=== PATIENT | female | born 1995 | race Caucasian/White ===

== ENCOUNTER 2018-07-27 10:30 | Observation (INO) | payer MEDICAID ==
[~2018-07-27] VITALS: Ht 165.1 cm; Wt 68.0 kg
--- NOTE | 2018-07-27 10:27 | NUR ---
JULIO WANG presented to unit via cart by EMS, accompanied by paramedics, with c/o LEFT SIDE ABD PAIN 32 WKS PREG. JULIO WANG weighed, gowned, voided, and to bed. JULIO WANG oriented to bed controls, call light, TV, heat, and A/C controls.
[2018-07-27 10:40] VITALS: BP 121/85
--- NOTE | 2018-07-27 10:42 | NUR ---
dr shepherd notified of patient c/o and status new orders received.
[2018-07-27] MEDS ORDERED: D5 LR IV SOLUTION 1,000 ML IV ONE ×2 (10:59→15:15)
[2018-07-27] MEDS ORDERED: fentaNYL INJECTION 100 MCG/2 ML AMP ONE ×2 (10:59→14:04)
[2018-07-27 11:13] LABS: BASOPHILS % (AUTO) 0 % (0-10); EOSINOPHILS # (AUTO) 0.1 10^3/uL (0.0-0.3); EOSINOPHILS % (AUTO) 0 % (0-10); HEMATOCRIT 37 % (35-52); HEMOGLOBIN 12.4 G/DL (11.5-16.0); LYMPHOCYTES # (AUTO) 1.7 X 10^3 (1.0-4.0); LYMPHOCYTES % (AUTO) 11 % (12-44); MEAN CORPUSCULAR HEMOGLOBIN 31 PG (25-34); MEAN CORPUSCULAR HGB CONC 34 G/DL (32-36); MEAN CORPUSCULAR VOLUME 92 FL (80-99); MEAN PLATELET VOLUME 10.4 FL (7.4-10.4); MONOCYTES # (AUTO) 1.2 X 10^3 (0.0-1.0); MONOCYTES % (AUTO) 7 % (0-12); NEUTROPHILS # (AUTO) 12.6 X 10^3 (1.8-7.8); NEUTROPHILS % (AUTO) 81 % (42-75); PLATELET COUNT 253 10^3/uL (130-400); RED CELL DISTRIBUTION WIDTH 12.9 % (10.0-14.5); WHITE BLOOD COUNT 15.6 10^3/uL (4.3-11.0)
[2018-07-27 11:14] LABS: BILIRUBIN,URINE NEGATIVE (NEGATIVE); CLARITY,URINE SLIGHTLY CLOUDY; COLOR,URINE YELLOW; GLUCOSE, URINE (UA) NEGATIVE (NEGATIVE); KETONES,URINE NEGATIVE (NEGATIVE); LEUKOCYTE ESTERASE ,URINE 2+ (NEGATIVE); NITRITE,URINE NEGATIVE (NEGATIVE); PH,URINE 8 (5-9); PROTEIN,URINE 2+ (NEGATIVE); UROBILINOGEN,URINE NORMAL (NORMAL)
[2018-07-27 11:30] LABS: AMORPHOUS SEDIMENT,UR FEW AMOR PHOSPHATE /LPF; BACTERIA,URINE FEW /HPF; RBC,URINE >100 /HPF
[2018-07-27 11:39] LABS: ALANINE AMINOTRANSFERASE 10 U/L (0-55); ALBUMIN 3.8 GM/DL (3.2-4.5); ALKALINE PHOSPHATASE 138 U/L (40-136); BILIRUBIN,TOTAL 0.3 MG/DL (0.1-1.0); BUN/CREATININE RATIO 14; CALCIUM 9.5 MG/DL (8.5-10.1); CARBON DIOXIDE 22 MMOL/L (21-32); CHLORIDE 105 MMOL/L (98-107); CREATININE SERUM 0.74 MG/DL (0.60-1.30); GFR ESTIMATED > 60; GLUCOSE 81 MG/DL (70-105); POTASSIUM 3.9 MMOL/L (3.6-5.0); SODIUM 139 MMOL/L (135-145); TOTAL PROTEIN 7.1 GM/DL (6.4-8.2)
[2018-07-27 11:45] LABS: BAND NEUTROPHILS 0 %; BASOPHILS % (MANUAL) 0 %; EOSINOPHILS % (MANUAL) 0 %; LYMPHOCYTES % (MANUAL) 13 %; MONOCYTES % (MANUAL) 6 %; NEUTROPHILS % (MANUAL) 81 %; RBC MORPH NORMAL
--- NOTE | 2018-07-27 12:15 | Diagnostic Imaging Report ---
PROCEDURE: US Renal Bilateral. TECHNIQUE: Multiple real-time grayscale images were obtained over the kidneys in various projections bilaterally. INDICATION: 32 weeks with left flank pain. COMPARISON: None available. FINDINGS: Left kidney is mildly enlarged measuring 14 cm in length. There is mild dilatation of the renal sinus fat on the left. No cortical thinning is present. No shadowing echogenic calculi are noted. The right kidney is normal in size measuring approximately 10 cm in length. No right-sided hydronephrosis or shadowing echogenic calculi. IMPRESSION: 1. Mild left-sided hydronephrosis without shadowing calculi. This could be physiologic with the gravid uterus. 2. No right-sided hydronephrosis. Dictated by: Dictated on workstation # [id number]
--- NOTE | 2018-07-27 12:20 | NUR ---
dr shepherd notified of lab and radiology results new orders received.
--- NOTE | 2018-07-27 13:35 | NUR ---
reviewed plan for continued observation and straining of urine for stones. verbalized understanding.
[2018-07-27] MEDS: ceFAZolin INJECTION 1,000 MG in WATER (STERILE) FOR INJECTION 10 ML IV SCH ×2 (14:00→19:58)
[2018-07-27 14:14] VITALS: BP 113/69
[2018-07-27] MEDS ORDERED: fentaNYL INJECTION 100 MCG/2 ML AMP IVP PRN (14:15)
--- NOTE | 2018-07-27 14:16 | NUR ---
efm applied. orders received for continuous FM r/t IV fentanyl use. reviewed poc with patient. verbalized understanding. see eMAR.
[2018-07-27] MEDS: fentaNYL INJECTION 100 MCG/2 ML AMP IVP PRN ×4 (16:30→22:46)
--- NOTE | 2018-07-27 17:07 | History & Physical-OB/GYN ---
History of Present Illness History of Present Illness Reason for visit/HPI Left-sided flank pain during Date of Admission 07/27/2018 Date Seen by a Provider: July 27, 2018 Time Seen by a Provider: 16:50 I consulted on this patient on 07/27/18 17:01 Attending Physician Doc Pollack DO Admitting Physician Doc Pollack DO Consult Allergies and Home Medications Allergies Coded Allergies: No Known Drug Allergies (Unverified , 07/27/18) Patient Home Medication List Home Medication List Reviewed: Yes ( Vitamins) Past Mtyscxy-Rxaalk-Jmuxmg Hx Patient Social History Marrital Status: single Number of Children: 1 Number of living children: 1 Employed/Student: unemployed Alcohol Use: Denies Use Recreational Drug Use: No Smoking Status: Never a Smoker Type Used: Cigarettes 2nd Hand Smoke Exposure: Yes Physical Abuse Screen: No Sexual Abuse: No Recent Foreign Travel: No Contact w/other who traveled: No Recent Hopitalizations: No Recent Infectious Disease Expo: No Seasonal Allergies Seasonal Allergies: No Surgeries Yes (STENT FOR KIDNEY STONES) Adenoidectomy, Tonsillectomy Respiratory No Currently Using CPAP: No Currently Using BIPAP: No Cardiovascular No Neurological No Reproductive System : Yes Expected Date of Delivery: Sep 08, 2018 Hx : 2 Hx Para: 1 Hx Total # of Abortions (Spona: 0 Hx Reproductive Disorders: No Sexually Transmitted Disease: No HIV/AIDS: No Female Reproductive Disorders: Denies Genitourinary No Gastrointestinal No Musculoskeletal No Endocrine History of Endocrine Disorders: No HEENT History of HEENT Disorders: No Cancer No Psychosocial History of Psychiatric Problem: No Blood Transfusions History of Blood Disorders: No Review of Systems Constitutional: see HPI Physical Exam Physical Exam Vital Signs Vital Signs Date Time Temp Pulse Resp B/P (MAP) Pulse Ox O2 Delivery O2 Flow Rate FiO2 07/27/18 10:40 99.2 69 20 121/85 (97) 99 Room Air Capillary Refill : Labs Laboratory Tests 07/27/18 11:00: Urine Color YELLOW, Urine Clarity SLIGHTLY CLOUDY, Urine pH 8, Urine Specific [place] 1.015L, Urine Protein 2+H, Urine Glucose (UA) NEGATIVE, Urine Ketones NEGATIVE, Urine Nitrite NEGATIVE, Urine Bilirubin NEGATIVE, Urine Urobilinogen NORMAL, Urine Leukocyte Esterase 2+H, Urine RBC (Auto) 5+H, Urine RBC >100H, Urine WBC 2-5, Urine Squamous Epithelial Cells 5-10, Urine Crystals PRESENTH, Urine Amorphous Sediment FEW KHADIJAH PHOSPHATEH, Urine Bacteria FEWH, Urine Casts NONE, Urine Mucus NEGATIVE, Urine Culture Indicated YES 07/27/18 11:07: White Blood Count 15.6H, Red Blood Count 3.97L, Hemoglobin 12.4, Hematocrit 37, Mean Corpuscular Volume 92, Mean Corpuscular Hemoglobin 31, Mean Corpuscular Hemoglobin Concent 34, Red Cell Distribution Width 12.9, Platelet Count 253, Mean Platelet Volume 10.4, Neutrophils (%) (Auto) 81H, Lymphocytes (%) (Auto) 11L, Monocytes (%) (Auto) 7, Eosinophils (%) (Auto) 0, Basophils (%) (Auto) 0, Neutrophils # (Auto) 12.6H, Lymphocytes # (Auto) 1.7, Monocytes # (Auto) 1.2H, Eosinophils # (Auto) 0.1, Basophils # (Auto) 0.0, Neutrophils % (Manual) 81, Lymphocytes % (Manual) 13, Monocytes % (Manual) 6, Eosinophils % (Manual) 0, Basophils % (Manual) 0, Band Neutrophils 0, Blood Morphology Comment NORMAL, Sodium Level 139, Potassium Level 3.9, Chloride Level 105, Carbon Dioxide Level 22, Anion Gap 12, Blood Urea Nitrogen 10, Creatinine 0.74, Estimat Glomerular Filtration Rate > 60, BUN/Creatinine Ratio 14, Glucose Level 81, Calcium Level 9.5, Corrected Calcium 9.7, Total Bilirubin 0.3, Aspartate Amino Transf (AST/ SGOT) 18, Alanine Aminotransferase (ALT/SGPT) 10, Alkaline Phosphatase 138H, Total Protein 7.1, Albumin 3.8 General Appearance: Mild Distress Respiratory: Lungs Clear, Normal Breath Sounds Cardiovascular: Regular Rate, Rhythm, No Murmur Abdominal: non tender, other (Significant left CVA tenderness) Labia: WNL Vagina: WNL Cervix: WNL Cervix OS: closed Uterus: Other (Gravid) Extremity: Normal Inspection, Normal Range of Motion, No Pedal Edema Assessment/Plan Assessment and Plan Assessment: Intrauterine at 33 weeks 2. Left CVA Tenderness 3. Nausea with Vomiting 4. Hematuria Plan: IV fluids, pain medications, antiemetic, and antibiotic. Strain urine. External Monitoring with observation. Admission Diagnosis Admission Status: Observation DOC POLLACK DO July 27, 2018 17:07
[2018-07-27] MEDS ORDERED: ONDANSETRON 4 MG/2 ML (SDV) Z0FRAN IVP PRN (18:15)
[2018-07-27 18:35] VITALS: BP 91/52
--- NOTE | 2018-07-27 19:00 | NUR ---
REFER TO LABOR FLOW SHEET.
[2018-07-27] MEDS: D5 LR IV SOLUTION 1,000 ML IV SCH ×3 (19:22→23:27)
--- NOTE | 2018-07-27 19:23 | NUR ---
PT RESTING. NEW BAG OF IV FLUIDS HUNG AND INFUSING @ 250 ML/HR/PUMP. MONITOR PAPER CHANGED.
[2018-07-27 22:45] VITALS: BP 111/55
[2018-07-28 01:20] VITALS: BP 127/64
[2018-07-28] MEDS: fentaNYL INJECTION 100 MCG/2 ML AMP IVP PRN ×4 (01:21→08:23)
[2018-07-28] MEDS: ceFAZolin INJECTION 1,000 MG in WATER (STERILE) FOR INJECTION 10 ML IV SCH ×2 (02:17→08:24)
[2018-07-28] MEDS ORDERED: D5 LR IV SOLUTION 1,000 ML IV SCH (03:00)
[2018-07-28] MEDS: D5 LR IV SOLUTION 1,000 ML IV SCH (03:24)
--- OUTSIDE RECORDS SUMMARY | 2018-07-28 04:38 | XMS REPORT | Continuity of Care Document ---
Author Organization Unknown Address Unknown Allergies There is no data. Medications There is no data. Problems There is no data. Procedures There is no data. Results Test Result Range HCG, QUANTITATIVE - 01/06/17 17:42 [place] [address] mIU/mL NRG TEST, SERUM (QUAL) - 01/06/17 17:42 HCG, TOTAL, QL POSITIVE See Note: TEST AUTHORIZATION - 01/06/17 17:42 TEST NAME: HCG, TOTAL, QN NRG TEST CODE: [id number] NRG CLIENT CONTACT: EZEQUIEL RODRIGUEZ NRG REPORT ALWAYS MESSAGE SIGNATURE NRG COMMENT NRG GLUCOSE MILDRED 1 HOUR - 06/17/18 15:06 GLUCOSE, POSTPRANDIAL/ 1 HOUR 74 mg/dL See Note: CBC - 06/17/18 15:06 WHITE BLOOD CELL COUNT 10.4 Thousand/uL 3.8-10.8 RED BLOOD CELL COUNT 3.80 Million/uL 3.80-5.10 HEMOGLOBIN 12.0 g/dL 11.7-15.5 HEMATOCRIT 35.0 % 35.0-45.0 MCV 92.1 fL 80.0-100.0 MCH 31.6 pg 27.0-33.0 MCHC 34.3 g/dL 32.0-36.0 RDW 12.2 % 11.0-15.0 PLATELET COUNT 285 Thousand/uL 140-400 MPV 11.2 fL 7.5-12.5 ABSOLUTE NEUTROPHILS 7457 cells/uL 8678-3806 ABSOLUTE LYMPHOCYTES 1882 cells/uL 850-3900 ABSOLUTE MONOCYTES 926 cells/uL 200-950 ABSOLUTE EOSINOPHILS 104 cells/uL 15-500 ABSOLUTE BASOPHILS 31 cells/uL 0-200 NEUTROPHILS 71.7 % NRG LYMPHOCYTES 18.1 % NRG MONOCYTES 8.9 % NRG EOSINOPHILS 1.0 % NRG BASOPHILS 0.3 % NRG SYPHILIS (RPR W/ REFLEX CONFIRMATION) - 06/17/18 15:06 RPR (DX) W/REFL TITER AND CONFIRMATORY TESTING NON-REACTIVE NON-REACTIVE Encounters ACCT No. Visit Date/Time Discharge Status Pt. Type Provider Facility Loc./Unit Complaint [id number] 07/15/2018 15:15:00 07/15/2018 23:59:59 [facility] [id number] 06/17/2018 13:30:00 Document Registration [id number] 01/06/2017 16:40:00 Document Registration
--- NOTE | 2018-07-28 05:14 | NUR ---
Rn to room to give pt her pain medication that she requested. Pt sleeping in bed, easy to arouse. pt immediately started moaning with left lower back pain when aroused. Will cont to monitor pain, iv pain medication given per pt request.
[2018-07-28 05:20] VITALS: BP 102/53
--- NOTE | 2018-07-28 06:15 | NUR ---
Dr. Pollack at bedside.
--- NOTE | 2018-07-28 06:27 | Discharge Summary ---
Diagnosis/Chief Complaint Date of Admission July 27, 2018 at 19:00 Date of Discharge July 28, 2018 Discharge Date: July 28, 2018 Discharge Time: 08:00 Admission Diagnosis Admission Diagnosis Intrauterine at 33 weeks 2. Severe Back Pain 3. CVA Tenderness 4. Hematuria Discharge Diagnosis Intrauterine at 33 weeks 2. Severe Back Pain 3. CVA Tenderness 4. Hematuria 5. Nausea with Vomiting Reason Hospital Visit Left-sided flank pain during Discharge Summary Hospital Course Was the Problem List Reviewed?: Yes Hospital Course Ms. Nielsen was admitted secondary to having severe left sided flank pain and needing pain management. Once admitted she was given IV fluids, antibiotics, and pain medications. A renal ultrasound was done, which demonstrated hydronephrosis on the left, but no visible nephrolithiasis. Over the course her pain improved, but didn't totally resolved. However, she felt she could be treated as an outpatient. I will discharge her to home with instructions, prescriptions, and a follow up appointment. Labs Laboratory Tests 07/27/18 11:00: Urine Specific [place] 1.015L, Urine Protein 2+H, Urine Leukocyte Esterase 2+H, Urine RBC (Auto) 5+H, Urine RBC >100H, Urine Crystals PRESENTH, Urine Amorphous Sediment FEW KHADIJAH PHOSPHATEH, Urine Bacteria FEWH 07/27/18 11:07: White Blood Count 15.6H, Red Blood Count 3.97L, Neutrophils (%) (Auto) 81H, Lymphocytes (%) (Auto) 11L, Neutrophils # (Auto) 12.6H, Monocytes # (Auto) 1.2H , Alkaline Phosphatase 138H Procedures None. Discharge Physical Examination Allergies: Coded Allergies: No Known Drug Allergies (Unverified , 07/27/18) Vitals & I&Os Vital Signs Date Time Temp Pulse Resp B/P (MAP) Pulse Ox O2 Delivery O2 Flow Rate FiO2 07/28/18 05:20 98.4 66 18 102/53 (69) Room Air 07/27/18 10:40 99 Discharge Home Medications Reviewed and agree with Discharge Medication list on patient's Discharge Instruction sheet Instructions to Patient/Family Please see electronic discharge instructions given to patient. FORTUNATO DELCID DO July 28, 2018 06:27
[2018-07-28] MEDS ORDERED: OXYC1TAB87 PO (06:30)
[2018-07-28] MEDS ORDERED: CEPH-507 PO (06:31)
[2018-07-28 08:00] VITALS: BP 109/56
--- NOTE | 2018-07-28 08:00 | NUR ---
A.M. ASSESSMENT COMPLETED. STRAINING ALL URINE. VSS.
--- NOTE | 2018-07-28 08:23 | NUR ---
FENTANYL 50 MCG IV FOR C/O LEFT SIDE/BACK PAIN.
--- NOTE | 2018-07-28 10:50 | NUR ---
DISCHARGE INSTRUCTIONS REVIEWED WITH COPY TO PT. RXS GIVEN. STATES UNDERSTANDING OF ALL INSTRUCTIONS AND NEED TO F/U INSTRUCTED.
[2018-07-28 11:00] VITALS: BP 109/56
--- NOTE | 2018-07-28 11:00 | NUR ---
DISMISSED AMB FROM [facility] IN STABLE CONDITION TO [facility] BY MATHEW THORNTON.
== END 2018-07-28 11:00 | disposition home or self-care (01) ==
LOC: LDRP 10:30 → WSo 10:30 → LDRP 15:07 → WS 15:07 → WSo 18:59 → LDRP 19:00 → WSo 19:59 → LDRP 19:59
PROVIDERS: ADMIT Obstetrics & Gynecology; ATTEND Obstetrics & Gynecology
DX: O26.893 Other specified pregnancy related conditions, third trimester (principal); M54.5 Low back pain; N13.30 Unspecified hydronephrosis; R31.9 Hematuria, unspecified; O21.2 Late vomiting of pregnancy; Z3A.33 33 weeks gestation of pregnancy
CPT/HCPCS: 36415; 76770; 80053; 81000; 85007; 85027; 87088; 96361; 96374; 96375; 96376; 99211; G0378

== ENCOUNTER → 2018-07-27 | Emergency (ER) | payer MEDICAID, OTHER | LOC: ER FS 09:14 ==

== ENCOUNTER 2018-08-29 06:57 | Inpatient (IN) | payer MEDICAID ==
[2018-08-29] VITALS (12 sets, daily range): BP systolic 94–133; BP diastolic 48–83
[~2018-08-29] VITALS: Ht 165.1 cm; Wt 73.5 kg
[~2018-08-29 06:57] MED LIST: CEPH-507 PO; OXYC1TAB87 PO
--- NOTE | 2018-08-29 07:00 | NUR ---
JULIO WANG presented to unit ambulatory from home, accompanied by SO , with c/o CONTRACTIONS. JULIO WANG weighed, gowned, voided, and to bed. EFHM and TOCO applied, VS taken. JULIO WANG oriented to bed controls, call light, TV, heat, and A/C controls.
[2018-08-29] MEDS ORDERED: D5 LR IV SOLUTION 1,000 ML IV SCH (07:46)
--- NOTE | 2018-08-29 07:50 | NUR ---
Dr Pollack phoned and left message of pt admission, dilation, and contractions. 0758 Dr Pollack called in to L&D to inquire. Orders received. 0905 Phoned ER registration and hospital splitter operator to obtain CORE INSERTER who was sergeant of corrections. They did not have a current list. Inquired of staff where to obtain - nursing supervisor crack off notified and stated that Ashok Reading was O.C. 0910 Phoned Ashok with no answer so left voice message. Called again at 0912, 0916, and 0918. Pain eased slightly from Stadol but still very uncomfortable. 0920 Notified nursing supervisor crack off of the above - she will check with ICU staff if CORE INSERTER is there. 0910 Dr Pollack present. 0922 Anterior rim of cervix. 0926 Dr Pollack in room.0936 Pudental anesthesia provided by physician. Delivery @ 0940.
[2018-08-29] MEDS ORDERED: MINERAL OIL CONCENTRATE 99.9% 15 ML UDC TOP PRN (08:00)
[2018-08-29] MEDS ORDERED: SUFENTA 0.6MCG/ML BUPIVA 0.125 100 ML ONE (08:25)
[2018-08-29] MEDS ORDERED: BUTORPHANOL INJ 2 MG/ML (STADOL) VIAL IV ONE (08:30)
[2018-08-29] MEDS ORDERED: LACTATED RINGERS 1,000 ML IV SCH (08:31)
[2018-08-29 08:37] LABS: BILIRUBIN,URINE NEGATIVE (NEGATIVE); CLARITY,URINE CLEAR; COLOR,URINE YELLOW; GLUCOSE, URINE (UA) NEGATIVE (NEGATIVE); KETONES,URINE NEGATIVE (NEGATIVE); LEUKOCYTE ESTERASE ,URINE 1+ (NEGATIVE); NITRITE,URINE NEGATIVE (NEGATIVE); PH,URINE 6.5 (5-9); PROTEIN,URINE NEGATIVE (NEGATIVE); UROBILINOGEN,URINE NORMAL (NORMAL)
[2018-08-29 08:43] LABS: BACTERIA,URINE TRACE /HPF
[2018-08-29 08:47] LABS: BASOPHILS % (AUTO) 0 % (0-10); EOSINOPHILS # (AUTO) 0.1 10^3/uL (0.0-0.3); EOSINOPHILS % (AUTO) 1 % (0-10); HEMATOCRIT 36 % (35-52); HEMOGLOBIN 12.3 G/DL (11.5-16.0); LYMPHOCYTES # (AUTO) 2.2 X 10^3 (1.0-4.0); LYMPHOCYTES % (AUTO) 15 % (12-44); MEAN CORPUSCULAR HEMOGLOBIN 31 PG (25-34); MEAN CORPUSCULAR HGB CONC 34 G/DL (32-36); MEAN CORPUSCULAR VOLUME 91 FL (80-99); MEAN PLATELET VOLUME 11.2 FL (7.4-10.4); MONOCYTES # (AUTO) 1.1 X 10^3 (0.0-1.0); MONOCYTES % (AUTO) 8 % (0-12); NEUTROPHILS % (AUTO) 76 % (42-75); PLATELET COUNT 231 10^3/uL (130-400); RED CELL DISTRIBUTION WIDTH 12.3 % (10.0-14.5); WHITE BLOOD COUNT 14.4 10^3/uL (4.3-11.0)
--- NOTE | 2018-08-29 09:13 | History & Physical-OB/GYN ---
History of Present Illness History of Present Illness Reason for visit/HPI Ms. Nielsen presents to the hospital for onset of contractions. She was found to be 4 cm dilator and eliud every 2-3 minutes Date of Admission August 29, 2018 Date Seen by a Provider: Aug 29, 2018 Time Seen by a Provider: 08:55 I consulted on this patient on 08/29/18 09:07 Attending Physician Doc Pollack DO Admitting Physician Doc Pollack DO Consult Allergies and Home Medications Allergies Coded Allergies: No Known Drug Allergies (Unverified , 07/27/18) Home Medications Cephalexin 500 Mg Capsule, 500 MG PO Q6H Prescribed by: DOC POLLACK on 07/28/18 0631 Oxycodone HCl/Acetaminophen 1 Each Tablet, 1 TAB PO Q4H Prescribed by: DOC POLLACK on 07/28/18 0630 Patient Home Medication List Home Medication List Reviewed: Yes Past Hnozcsc-Ddyznq-Qrnfxj Hx Patient Social History Marrital Status: domestic partnership Number of Children: 1 Number of living children: 1 Employed/Student: unemployed Alcohol Use: Denies Use Recreational Drug Use: No Type Used: Cigarettes 2nd Hand Smoke Exposure: Yes Recent Foreign Travel: No Contact w/other who traveled: No Recent Hopitalizations: No Seasonal Allergies Seasonal Allergies: No Surgeries Yes (STENT FOR KIDNEY STONES) Adenoidectomy, Tonsillectomy Respiratory No Currently Using CPAP: No Currently Using BIPAP: No Cardiovascular No Neurological No Reproductive System Hx Reproductive Disorders: No Sexually Transmitted Disease: No HIV/AIDS: No Female Reproductive Disorders: Denies Genitourinary No Gastrointestinal No Musculoskeletal No Endocrine History of Endocrine Disorders: No HEENT History of HEENT Disorders: No Cancer No Psychosocial History of Psychiatric Problem: No Blood Transfusions History of Blood Disorders: No Review of Systems Constitutional: see HPI Physical Exam Physical Exam Vital Signs Capillary Refill : Labs Laboratory Tests 08/29/18 07:10: Urine Color YELLOW, Urine Clarity CLEAR, Urine pH 6.5, Urine Specific [place] 1.015L, Urine Protein NEGATIVE, Urine Glucose (UA) NEGATIVE, Urine Ketones NEGATIVE, Urine Nitrite NEGATIVE, Urine Bilirubin NEGATIVE, Urine Urobilinogen NORMAL, Urine Leukocyte Esterase 1+H, Urine RBC (Auto) NEGATIVE, Urine RBC 2-5H, Urine WBC 2-5, Urine Squamous Epithelial Cells 5-10, Urine Crystals NONE, Urine Bacteria TRACE, Urine Casts NONE, Urine Mucus NEGATIVE, Urine Culture Indicated NO 08/29/18 08:35: General Appearance: No Apparent Distress, WD/WN Respiratory: Chest Non Tender, Lungs Clear Cardiovascular: Regular Rate, Rhythm, No Murmur Abdominal: normal bowel sounds Gynecology/General: No urethral discharge, No lesions Labia: WNL Vagina: WNL Cervix: WNL, Other (4 cm dilated) Cervix OS: open Extremity: Normal Capillary Refill, Normal Range of Motion, No Calf Tenderness Assessment/Plan Assessment and Plan Assessment: Intrauterine at 38 5/7 weeks (onset of labor) Plan: AROM, augment labor with Pitocin in necessary. Epidural. I expect a normal spontaneous vaginal delivery Admission Diagnosis Intrauterine at 38 5/7 weeks Admission Status: Inpatient Order (span 2 midnights) Reason for Inpatient Admission: with anticipated vaginal delivery DOC POLLACK DO Aug 29, 2018 09:13
[2018-08-29] MEDS ORDERED: LIDOCAINE 1% INJ 20 ML 20 ML VIAL ONE (09:23)
[2018-08-29] MEDS ORDERED: OXYTOCIN/NORMAL SALINE 500 ML IV ONE ×2 (09:31→10:16)
[2018-08-29] MEDS ORDERED: OXYTOCIN/NORMAL SALINE 500 ML IV SCH ×2 (09:40→10:24)
--- NOTE | 2018-08-29 09:45 | NUR ---
Recovery initiated. FF @ u/1 with light rubra flow. Denies pain 1000 FF @ u/1 with light rubra flow. Infant skin to skin. 1015 FF @ u/1 with light rubra flow. Bonding well with and father of baby. 1030 FF @ umb. with light rubra flow. 1045 FF @ umb. with light rubra flow. Ice pack applied to perineum for edema and comfort. 1100 FF @ umb. with light rubra flow. Father of baby -Ricco Valencia holding daughter. 1130 FF @ umb. with moderate rubra flow. 1145 FF @ umb. with moderate rubra flow. Denies pain. 1200 Ambulated to BR and voided well. Used elijah bottle and witch yvrose pads. Gave Dermaplast spray with instructions - left at bedside. 1210 To room 309 per wheelchair. Ricco pushed baby in crib to room. Pt comfortable. IV infusing with Pitocin.
[2018-08-29 09:52] LABS: EOSINOPHILS % (MANUAL) 2 %; LYMPHOCYTES % (MANUAL) 14 %; MONOCYTES % (MANUAL) 2 %; NEUTROPHILS % (MANUAL) 82 %; RBC MORPH NORMAL
--- NOTE | 2018-08-29 09:59 | OB Labor & Delivery Record ---
Vag Delivery Note Vag Delivery Note Date of Delivery: 08/29/18 Preoperative Diagnosis: Chely Nielsen is a (23 /Para / ,Gestational Age (38 5/7 wks)with [] Postoperative Diagnosis: Same Surgeon: FORTUNATO DELCID Property Management Assistant: [None] Anesthesia: [Pudendal Block] Delivery Type: [Normal Spontaneous Vaginal Delivery] Findings: [] Viable [female] , apgars [], weight [5 lb 6 oz] Lacerations: Midline episiotomy with standard repair Intact placenta with 3 vessel cord. No nuchal cord, body cord or shoulder dystocia Cytotec 800 mcg placed for hemorrhage prophylaxis Estimated Blood Loss: [300] ml Complications: None Condition: Stable Description of Procedure: The patient is a 23 year old female who presented [with onset of contractions]. She was admitted and informed consent was obtained. Her labor course was remarkable. She progressed to complete dilatation and began to push. She was then set up for delivery. The 's head was delivered atraumatically in the [APRYL] position. The shoulders and remainder of the 's body were then delivered without difficulty. Upon delivery, the head was held below the l evel of the perineum and the mouth and nares were bulb suctioned. The cord was doubly clamped and cut and the infant was handed off to the pediatric staff. An intact placenta with 3-vessel cord delivered via [place] and there was found to be minimal bleeding.~ Vigorous fundal massage was performed and the fundus was found to be firm. IV oxytocin was given. Examination of the vagina and perineum revealed a midline episiotomy, which was repaired in the usual fashion with 3-0 vicryl suture. Following the repair, sponge, instrument and needle counts were correct. Mom and baby were both in stable condition in the labor suite. Vitals - Labs Labs Laboratory Tests 08/29/18 07:10: Urine Color YELLOW, Urine Clarity CLEAR, Urine pH 6.5, Urine Specific [place] 1.015L, Urine Protein NEGATIVE, Urine Glucose (UA) NEGATIVE, Urine Ketones NEGATIVE, Urine Nitrite NEGATIVE, Urine Bilirubin NEGATIVE, Urine Urobilinogen NORMAL, Urine Leukocyte Esterase 1+H, Urine RBC (Auto) NEGATIVE, Urine RBC 2-5H, Urine WBC 2-5, Urine Squamous Epithelial Cells 5-10, Urine Crystals NONE, Urine Bacteria TRACE, Urine Casts NONE, Urine Mucus NEGATIVE, Urine Culture Indicated NO 08/29/18 08:35: White Blood Count 14.4H, Red Blood Count 3.94L, Hemoglobin 12.3, Hematocrit 36, Mean Corpuscular Volume 91, Mean Corpuscular Hemoglobin 31, Mean Corpuscular Hemoglobin Concent 34, Red Cell Distribution Width 12.3, Platelet Count 231, Mean Platelet Volume 11.2H, Neutrophils (%) (Auto) 76H, Lymphocytes (%) (Auto) 15, Monocytes (%) (Auto) 8, Eosinophils (%) (Auto) 1, Basophils (%) (Auto) 0, Neutrophils # (Auto) 11.0H, Lymphocytes # (Auto) 2.2, Monocytes # (Auto) 1.1H, Eosinophils # (Auto) 0.1, Basophils # (Auto) 0.0, Neutrophils % (Manual) 82, Lymphocytes % (Manual) 14, Monocytes % (Manual) 2, Eosinophils % (Manual) 2, Blood Morphology Comment NORMAL SEALS,FORTUNATO Siddiqui DO Aug 29, 2018 09:59
[2018-08-29] MEDS ORDERED: TETANUS,DIPTH,PERTUSS P/F (BOOSTRIX) 0.5 ML VIAL IM ONE (10:00)
[2018-08-29] MEDS ORDERED: MEASLES,MUMPS,RUBELLA 1 EA INJ SQ ONE (10:00)
[2018-08-29] MEDS ORDERED: BENZOCAINE/MENTHOL (DERMOPLAST) 56 ML CAN TP PRN ×2 (10:00→10:30)
[2018-08-29] MEDS ORDERED: WITCH HAZEL(TUCKS) 40 EA JAR TOP PRN ×2 (10:00→10:30)
--- OUTSIDE RECORDS SUMMARY | 2018-08-29 10:17 | XMS REPORT | Continuity of Care Document ---
Author Organization Unknown Address Unknown Allergies Active Description Code Type Severity Reaction Onset Reported/Identified Relationship to Patient Clinical Status Yes No Known Drug Allergies [id number] Drug Allergy Unknown N/A 07/27/2018 Medications There is no data. Problems Date Dx Coded Attending Type Code Diagnosis Diagnosed By 07/28/2018 FORTUNATO DELCID DO E Ot M54.5 LOW BACK PAIN 07/28/2018 CRISTIANO DELCID DORY E Ot N13.30 UNSPECIFIED HYDRONEPHROSIS 07/28/2018 FARHANA CISSE FORTUNATO E Ot O21.2 LATE VOMITING OF 07/28/2018 FARHANA CISSE FORTUNATO E Ot O26.893 OT RELATED CONDITIONS, THIRD 07/28/2018 CRISTIANO DELCID DORY E Ot R31.9 HEMATURIA, UNSPECIFIED 07/28/2018 FARHANA CISSE FORTUNATO E Ot Z3A.33 33 WEEKS GESTATION OF 08/13/2018 NADEEM BURDEN DO, Ot F17.210 NICOTINE DEPENDENCE, CIGARETTES, UNCOMPL 08/13/2018 NADEEM BURDEN DO Ot O26.893 OT RELATED CONDITIONS, THIRD 08/13/2018 NADEEM BURDEN DO Ot O99.333 SMOKING (TOBACCO) COMPLICATING 08/13/2018 NADEEM BURDEN DO Ot R10.32 LEFT LOWER QUADRANT PAIN 08/13/2018 NADEEM BURDEN DO Ot Z3A.33 33 WEEKS GESTATION OF 08/13/2018 NADEEM BURDNE DO Ot Z87.442 PERSONAL HISTORY OF URINARY CALCULI 08/13/2018 NADEEM BURDEN DO Ot Z90.89 ACQUIRED ABSENCE OF OTHER ORGANS 08/13/2018 NADEEM BURDEN DO Ot Z96.0 PRESENCE OF UROGENITAL IMPLANTS 08/15/2018 NADEEM BURDEN DO, Ot F17.210 NICOTINE DEPENDENCE, CIGARETTES, UNCOMPL 08/15/2018 NADEEM BURDEN DO Ot O26.893 OT RELATED CONDITIONS, THIRD 08/15/2018 NADEEM BURDEN DO, Ot O99.333 SMOKING (TOBACCO) COMPLICATING 08/15/2018 NADEEM BURDEN DO Ot R10.32 LEFT LOWER QUADRANT PAIN 08/15/2018 NADEEM BURDEN DO Ot Z3A.33 33 WEEKS GESTATION OF 08/15/2018 NADEEM BURDEN DO Ramy Z87.442 PERSONAL HISTORY OF URINARY CALCULI 08/15/2018 NADEEM BURDEN DO Ot Z90.89 ACQUIRED ABSENCE OF OTHER ORGANS 08/15/2018 NADEEM BURDEN DO Ramy Z96.0 PRESENCE OF UROGENITAL IMPLANTS Procedures There is no data. Results Test Result Range HCG, QUANTITATIVE - 01/06/17 17:42 [place] [address] mIU/mL NRG TEST, SERUM (QUAL) - 01/06/17 [...] 11.2 fL 7.5-12.5 ABSOLUTE NEUTROPHILS 7457 cells/uL 0411-9973 ABSOLUTE LYMPHOCYTES 1882 cells/uL 850-3900 ABSOLUTE MONOCYTES 926 cells/uL 200-950 ABSOLUTE EOSINOPHILS 104 cells/uL 15-500 ABSOLUTE BASOPHILS 31 cells/uL 0-200 NEUTROPHILS 71.7 % NRG LYMPHOCYTES 18.1 % NRG MONOCYTES 8.9 % NRG EOSINOPHILS 1.0 % NRG BASOPHILS 0.3 % NRG SYPHILIS (RPR W/ REFLEX CONFIRMATION) - 06/17/18 15:06 RPR (DX) W/REFL TITER AND CONFIRMATORY TESTING NON-REACTIVE NON-REACTIVE Complete urinalysis with reflex to culture - 07/27/18 11:00 Urine color determination YELLOW NRG Urine clarity determination SLIGHTLY CLOUDY NRG Urine pH measurement by test strip 8 5-9 Specific gravity of urine by test strip 1.015 1.016-1.022 Urine protein assay by test strip, semi-quantitative 2+ NEGATIVE Urine glucose detection by automated test strip NEGATIVE NEGATIVE Erythrocytes detection in urine sediment by light microscopy 5+ NEGATIVE Urine ketones detection by automated test strip NEGATIVE NEGATIVE Urine nitrite detection by test strip NEGATIVE NEGATIVE Urine total bilirubin detection by test strip NEGATIVE NEGATIVE Urine urobilinogen measurement by automated test strip (mass/volume) NORMAL NORMAL Urine leukocyte esterase detection by dipstick 2+ NEGATIVE Automated urine sediment erythrocyte count by microscopy (number/high power field) > [HPF] NRG Automated urine sediment leukocyte count by microscopy (number/high power field) [HPF] NRG Bacteria detection in urine sediment by light microscopy FEW NRG Squamous epithelial cells detection in urine sediment by light microscopy 5-10 NRG Crystals detection in urine sediment by light microscopy PRESENT NRG Casts detection in urine sediment by light microscopy NONE NRG Mucus detection in urine sediment by light microscopy NEGATIVE NRG Complete urinalysis with reflex to culture YES NRG Amorphous sediment detection in urine sediment by light microscopy FEW KHADIJAH PHOSPHATE NRG Bacterial urine culture - 07/27/18 11:00 Bacterial urine culture 3 OR MORE NRG COLONY COUNT 40,000 CFU/ML NRG FTX;REPORTABLE GRAM POSITIVES, SUGGESTING PROBABLE NRG FREE TEXT ENTRY 2 COLLECTION CONTAMINATION WITH SKIN NRG FREE TEXT ENTRY 3 GUI. NO SUSCEPTIBILITY PERFORMED NRG Complete blood count (CBC) with automated white blood cell (WBC) differential - 07/27/18 11:07 Blood leukocytes automated count (number/volume) 15.6 10*3/uL 4.3-11.0 Blood erythrocytes automated count (number/volume) 3.97 10*6/uL 4.35-5.85 Venous blood hemoglobin measurement (mass/volume) 12.4 g/dL 11.5-16.0 Blood hematocrit (volume fraction) 37 % 35-52 Automated erythrocyte mean corpuscular volume 92 [foz_us] 80-99 Automated erythrocyte mean corpuscular hemoglobin (mass per erythrocyte) 31 pg 25-34 Automated erythrocyte mean corpuscular hemoglobin concentration measurement (mass/volume) 34 g/dL 32-36 Automated erythrocyte distribution width ratio 12.9 % 10.0- 14.5 Automated blood platelet count (count/volume) 253 10*3/uL 130-400 Automated blood platelet mean volume measurement 10.4 [foz_us] 7.4-10.4 Automated blood neutrophils/100 leukocytes 81 % 42-75 Automated blood lymphocytes/100 leukocytes 11 % 12-44 Blood monocytes/100 leukocytes 7 % 0-12 Automated blood eosinophils/100 leukocytes 0 % 0-10 Automated blood basophils/100 leukocytes 0 % 0-10 Blood neutrophils automated count (number/volume) 12.6 10*3 1.8-7.8 Blood lymphocytes automated count (number/volume) 1.7 10*3 1.0-4.0 Blood monocytes automated count (number/volume) 1.2 10*3 0.0- 1.0 Automated eosinophil count 0.1 10*3/uL 0.0-0.3 Automated blood basophil count (count/volume) 0.0 10*3/uL 0.0-0.1 Comprehensive metabolic panel - 07/27/18 11:07 Serum or plasma sodium measurement (moles/volume) 139 mmol/L 135-145 Serum or plasma potassium measurement (moles/volume) 3.9 mmol/L 3.6-5.0 Serum or plasma chloride measurement (moles/volume) 105 mmol/L 98-107 Carbon dioxide 22 mmol/L 21-32 Serum or plasma anion gap determination (moles/volume) 12 mmol/L 5-14 Serum or plasma urea nitrogen measurement (mass/volume) 10 mg/dL 7-18 Serum or plasma creatinine measurement (mass/volume) 0.74 mg/dL 0.60-1.30 Serum or plasma urea nitrogen/creatinine mass ratio 14 NRG Serum or plasma creatinine measurement with calculation of estimated glomerular filtration rate > NRG Serum or plasma glucose measurement (mass/volume) 81 mg/dL 70-105 Serum or plasma calcium measurement (mass/volume) 9.5 mg/dL 8.5-10.1 Serum or plasma total bilirubin measurement (mass/volume) 0.3 mg/dL 0.1-1.0 Serum or plasma alkaline phosphatase measurement (enzymatic activity/volume) 138 U/L 40-136 Serum or plasma aspartate aminotransferase measurement (enzymatic activity/volume) 18 U/L 5-34 Serum or plasma alanine aminotransferase measurement (enzymatic activity/volume) 10 U/L 0-55 Serum or plasma protein measurement (mass/volume) 7.1 g/dL 6.4-8.2 Serum or plasma albumin measurement (mass/volume) 3.8 g/dL 3.2-4.5 CALCIUM CORRECTED 9.7 mg/dL 8.5-10.1 Blood manual differential performed detection - 07/27/18 11:07 Blood monocytes/100 leukocytes 6 % NRG Manual blood segmented neutrophils/100 leukocytes 81 % NRG Blood band neutrophils/100 leukocytes 0 % NRG Manual blood lymphocytes/100 leukocytes 13 % NRG Manual eosinophils/100 leukocytes in nose 0 % NRG Manual blood basophils/100 leukocytes 0 % NRG Blood erythrocyte morphology finding identification NORMAL NRG CULTURE, GROUP B STREP (VAGINAL) - 08/05/18 15:49 STREPTOCOCCUS, GROUP B CULTURE SEE NOTE NRG Complete urinalysis with reflex to culture - 08/29/18 07:10 Urine color determination YELLOW NRG Urine clarity determination CLEAR NRG Urine pH measurement by test strip 6.5 5-9 Specific gravity of urine by test strip 1.015 1.016-1.022 Urine protein assay by test strip, semi-quantitative NEGATIVE NEGATIVE Urine glucose detection by automated test strip NEGATIVE NEGATIVE Erythrocytes detection in urine sediment by light microscopy NEGATIVE NEGATIVE Urine ketones detection by automated test strip NEGATIVE NEGATIVE Urine nitrite detection by test strip NEGATIVE NEGATIVE Urine total bilirubin detection by test strip NEGATIVE NEGATIVE Urine urobilinogen measurement by automated test strip (mass/volume) NORMAL NORMAL Urine leukocyte esterase detection by dipstick 1+ NEGATIVE Automated urine sediment erythrocyte count by microscopy (number/high power field) [HPF] NRG Automated urine sediment leukocyte count by microscopy (number/high power field) [HPF] NRG Bacteria detection in urine sediment by light microscopy TRACE NRG Squamous epithelial cells detection in urine sediment by light microscopy 5-10 NRG Crystals detection in urine sediment by light microscopy NONE NRG Casts detection in urine sediment by light microscopy NONE NRG Mucus detection in urine sediment by light microscopy NEGATIVE NRG Complete urinalysis with reflex to culture NO NRG Complete blood count (CBC) with automated white blood cell (WBC) differential - 08/29/18 08:35 Blood leukocytes automated count (number/volume) 14.4 10*3/uL 4.3-11.0 Blood erythrocytes automated count (number/volume) 3.94 10*6/uL 4.35-5.85 Venous blood hemoglobin measurement (mass/volume) 12.3 g/dL 11.5-16.0 Blood hematocrit (volume fraction) 36 % 35-52 Automated erythrocyte mean corpuscular volume 91 [foz_us] 80-99 Automated erythrocyte mean corpuscular hemoglobin (mass per erythrocyte) 31 pg 25-34 Automated erythrocyte mean corpuscular hemoglobin concentration measurement (mass/volume) 34 g/dL 32-36 Automated erythrocyte distribution width ratio 12.3 % 10.0- 14.5 Automated blood platelet count (count/volume) 231 10*3/uL 130-400 Automated blood platelet mean volume measurement 11.2 [foz_us] 7.4-10.4 Automated blood neutrophils/100 leukocytes 76 % 42-75 Automated blood lymphocytes/100 leukocytes 15 % 12-44 Blood monocytes/100 leukocytes 8 % 0-12 Automated blood eosinophils/100 leukocytes 1 % 0-10 Automated blood basophils/100 leukocytes 0 % 0-10 Blood neutrophils automated count (number/volume) 11.0 10*3 1.8-7.8 Blood lymphocytes automated count (number/volume) 2.2 10*3 1.0-4.0 Blood monocytes automated count (number/volume) 1.1 10*3 0.0- 1.0 Automated eosinophil count 0.1 10*3/uL 0.0-0.3 Automated blood basophil count (count/volume) 0.0 10*3/uL 0.0-0.1 Blood type T Indirect antibody screen panel - 08/29/18 08:35 WRISTBAND NUMBER [id number] NRG ABO+Rh group AP NRG Blood group antibody screen NEGATIVE NRG Manual absolute plasma cell count - 08/29/18 08:35 Blood monocytes/100 leukocytes 2 % NRG Manual blood segmented neutrophils/100 leukocytes 82 % NRG Manual blood lymphocytes/100 leukocytes 14 % NRG Manual eosinophils/100 leukocytes in nose 2 % NRG Blood erythrocyte morphology finding identification NORMAL NRG Encounters ACCT No. Visit Date/Time Discharge Status Pt. Type Provider Facility Loc./Unit Complaint [id number] 08/26/2018 15:15:00 ACT Outpatient [facility] [id number] 08/05/2018 14:15:00 Document Registration [id number] 06/17/2018 13:30:00 Document Registration [id number] 01/06/2017 16:40:00 Document Registration [id number] 07/27/2018 10:27:00 07/28/2018 06:34:00 DIS Outpatient FORTUNATO DELCID DO [facility] LDRP LEFT SIDE ABD PAIN 32 WKS PREG [id number] 07/27/2018 09:14:00 07/27/2018 09:40:00 DIS Outpatient NADEEM BURDEN DO [facility] ER FS CONTRACTIONS [id number] 08/31/2018 04:30:00 PEN Preadmit FORTUNATO DELCID DO INDUCTION [id number] 08/29/2018 08:44:00 Document Registration
[2018-08-29] MEDS ORDERED: LIDOCAINE 1% INJ 20 ML 20 ML VIAL INJ ONE (11:00)
[2018-08-29] MEDS: IBUPROFEN 800 MG (MOTRIN) TAB PO SCH ×2 (11:20→19:49)
[2018-08-29] MEDS ORDERED: CATHETER FLUSH 10 ML SYR IV SCH ×3 (14:00)
[2018-08-29] MEDS ORDERED: IBUPROFEN 800 MG (MOTRIN) TAB PO SCH (14:00)
[2018-08-29] MEDS: ACETAMINOPHEN 500 MG TAB (TYLENOL) PO SCH ×2 (17:55→23:49)
[2018-08-29] MEDS: DOCUSATE SODIUM 100 MG (COLACE) CAP PO SCH (19:49)
[2018-08-30] MEDS: ACETAMINOPHEN 500 MG TAB (TYLENOL) PO SCH ×2 (00:01→06:03)
[2018-08-30 03:19] VITALS: BP 102/66
[2018-08-30] MEDS: IBUPROFEN 800 MG (MOTRIN) TAB PO SCH (03:21)
[2018-08-30 05:21] LABS: BASOPHILS % (AUTO) 0 % (0-10); EOSINOPHILS # (AUTO) 0.1 10^3/uL (0.0-0.3); EOSINOPHILS % (AUTO) 1 % (0-10); HEMATOCRIT 33 % (35-52); HEMOGLOBIN 10.9 G/DL (11.5-16.0); LYMPHOCYTES # (AUTO) 2.1 X 10^3 (1.0-4.0); LYMPHOCYTES % (AUTO) 16 % (12-44); MEAN CORPUSCULAR HEMOGLOBIN 31 PG (25-34); MEAN CORPUSCULAR HGB CONC 33 G/DL (32-36); MEAN CORPUSCULAR VOLUME 93 FL (80-99); MEAN PLATELET VOLUME 11.9 FL (7.4-10.4); MONOCYTES # (AUTO) 1.1 X 10^3 (0.0-1.0); MONOCYTES % (AUTO) 8 % (0-12); NEUTROPHILS # (AUTO) 10.1 X 10^3 (1.8-7.8); NEUTROPHILS % (AUTO) 75 % (42-75); PLATELET COUNT 204 10^3/uL (130-400); RED CELL DISTRIBUTION WIDTH 12.7 % (10.0-14.5); WHITE BLOOD COUNT 13.5 10^3/uL (4.3-11.0)
[2018-08-30] MEDS ORDERED: PRENATAL VITAMIN 1 EA TAB PO SCH (07:00)
[2018-08-30] MEDS ORDERED: OXC5T PO (08:22)
[2018-08-30] MEDS ORDERED: DOCU100C37 PO (08:22)
[2018-08-30] MEDS ORDERED: ACET-77 PO (08:22)
[2018-08-30] MEDS ORDERED: IBUP-1780 PO (08:22)
--- NOTE | 2018-08-30 08:28 | Discharge Summary ---
Diagnosis/Chief Complaint Date of Admission Aug 29, 2018 at 06:58 Date of Discharge August 30, 2018 Discharge Date: Aug 30, 2018 Discharge Time: 08:25 Admission Diagnosis Admission Diagnosis Intrauterine at 38 5/7 weeks Discharge Diagnosis Intrauterine at 38 5/7 weeks--delivered Reason Hospital Visit Ms. Nielsen presents to the hospital for onset of contractions. She was found to be 4 cm dilator and eliud every 2-3 minutes Discharge Summary Hospital Course Hospital Course Ms. Nielsen presented to the hospital with the onset of labor. She progressed to complete rapidly. She was given a Pudendal Block for antepartum pain management, then, over a midline episiotomy delivered a healthy viable female . The remainder of her hospitalization was unremarkable. Her vital signs remained stable throughout her hospitalization. She was discharged with instructions, prescriptions, and a follow up appointment. Labs Laboratory Tests 08/29/18 07:10: Urine Specific [place] 1.015L, Urine Leukocyte Esterase 1+H, Urine RBC 2-5H 08/29/18 08:35: White Blood Count 14.4H, Red Blood Count 3.94L, Mean Platelet Volume 11.2H, Neutrophils (%) (Auto) 76H, Neutrophils # (Auto) 11.0H, Monocytes # (Auto) 1.1H 08/30/18 04:52: White Blood Count 13.5H, Red Blood Count 3.56L, Mean Platelet Volume 11.9H, Neutrophils # (Auto) 10.1H, Monocytes # (Auto) 1.1H, Hemoglobin 10.9L, Hematocrit 33L Procedures None. Discharge Physical Examination Allergies: Coded Allergies: No Known Drug Allergies (Unverified , 08/29/18) Lynda Vitals & I&Os Vital Signs Date Time Temp Pulse Resp B/P (MAP) Pulse Ox O2 Delivery O2 Flow Rate FiO2 08/30/18 03:19 97.6 64 18 102/66 (78) 97 Room Air General Appearance: Alert, Oriented X3, Cooperative HEENT: PERRLA, EOMI Respiratory: Clear to Auscultation, Normal Air Movement Cardiovascular: Regular Rate, No Murmurs Abdominal: Normal Bowel Sounds, Soft, No Tenderness Extremities: No Clubbing, No Cyanosis, No Edema Skin: No Rashes Neuro: Normal Gait, Normal Speech, Cranial Nerves 3-12 NL Psych/Mental Status: Mental Status NL Discharge Home Medications Reviewed and agree with Discharge Medication list on patient's Discharge Instruction sheet Instructions to Patient/Family Please see electronic discharge instructions given to patient. Clinical Quality Measures DVT/VTE Risk/Contraindication: Risk Factor Score Per Nursin RFS Level Per Nursing on Admit: 1=Low/No VTE PPX FORTUNATO DELCID DO Aug 30, 2018 08:27
[2018-08-30] MEDS: DOCUSATE SODIUM 100 MG (COLACE) CAP PO SCH (08:39)
[2018-08-30 12:42] VITALS: BP 102/66
== END 2018-08-30 12:53 | disposition home or self-care (01) | DRG 807 ==
LOC: WSo 06:57 → LDRP 06:57 → WSo 06:58 → LDRP 12:10
PROVIDERS: ADMIT Obstetrics & Gynecology; ATTEND Obstetrics & Gynecology
PROC: 10E0XZZ Delivery of Products of Conception, External Approach (ICD-10-PCS; principal; 2018-08-29)
PROC: 0W8NXZZ Division of Female Perineum, External Approach (ICD-10-PCS; 2018-08-29)
DX: O80 Encounter for full-term uncomplicated delivery (principal); Z3A.38 38 weeks gestation of pregnancy; Z37.0 Single live birth; Z87.891 Personal history of nicotine dependence
CPT/HCPCS: 36415; 81000; 85007; 85025; 85027; 86850; 86900; 86901; 99212

== ENCOUNTER 2018-10-17 19:30 | Emergency (ER) | payer MEDICAID | END 2018-10-17 21:50 | disposition home or self-care (01) | LOC: ER FS 19:30 ==

== ENCOUNTER 2021-03-07 07:01 | Inpatient (IN) | payer MEDICAID ==
[2021-03-07] VITALS (39 sets, daily range): BP systolic 66–126; BP diastolic 51–76
[~2021-03-07 07:01] MED LIST changes: +ACET-78 PO; +DOCU100C37 PO; +IBUP-1780 PO; +OXC5T PO
[2021-03-07 07:49] LABS: BILIRUBIN,URINE NEGATIVE (NEGATIVE); CLARITY,URINE CLEAR; COLOR,URINE YELLOW; GLUCOSE, URINE (UA) NEGATIVE (NEGATIVE); KETONES,URINE NEGATIVE (NEGATIVE); LEUKOCYTE ESTERASE ,URINE 1+ (NEGATIVE); NITRITE,URINE NEGATIVE (NEGATIVE); PH,URINE 6.5 (5-9); PROTEIN,URINE TRACE (NEGATIVE)
[2021-03-07 08:12] LABS: BACTERIA,URINE LARGE /HPF
[2021-03-07 08:13] LABS: AMORPHOUS SEDIMENT,UR FEW AMOR URATES /LPF; CALCIUM OXALATE CRYSTALS,UR FEW /LPF
[2021-03-07] MEDS ORDERED: D5 LR IV SOLUTION 1,000 ML IV ONE (08:49)
[2021-03-07] MEDS ORDERED: MINERAL OIL CONCENTRATE 99.9% 15 ML UDC TOP PRN (09:30)
[2021-03-07] MEDS ORDERED: D5 LR IV SOLUTION 1,000 ML IV SCH (09:30)
[2021-03-07 09:35] LABS: BASOPHILS % (AUTO) 0 % (0-10); EOSINOPHILS % (AUTO) 0 % (0-10); HEMATOCRIT 38 % (35-52); LYMPHOCYTES # (AUTO) 1.2 10^3/uL (1.0-4.0); LYMPHOCYTES % (AUTO) 14 % (12-44); MEAN CORPUSCULAR HEMOGLOBIN 32 pg (25-34); MEAN CORPUSCULAR HGB CONC 34 g/dL (32-36); MEAN CORPUSCULAR VOLUME 94 fL (80-99); MEAN PLATELET VOLUME 10.8 fL (9.0-12.2); MONOCYTES # (AUTO) 0.7 10^3/uL (0.0-1.0); MONOCYTES % (AUTO) 8 % (0-12); NEUTROPHILS # (AUTO) 6.5 10^3/uL (1.8-7.8); NEUTROPHILS % (AUTO) 77 % (42-75); PLATELET COUNT 187 10^3/uL (130-400); WHITE BLOOD COUNT 8.4 10^3/uL (4.3-11.0)
--- NOTE | 2021-03-07 11:21 | History & Physical-OB ---
OB - Chief Complaint & HPI Date/Time Date of Admission: Date of Admission: Mar 07, 2021 at 08:25 Date seen by a Provider: Mar 07, 2021 Time Seen by a Provider: 11:15 Chief Complaint/History OB-Reason for Admission/Chief: Onset of Labor Hx : 3 Hx Para: 2 Expected Date of Delivery: Mar 13, 2021 Gestational Age in Weeks: 39 Gestational Age in Days: 1 Allergies and Home Medications Allergies Coded Allergies: tomato (Verified Allergy, Unknown, 10/17/18) Patient Home Medication List Home Medication List Reviewed: Yes Acetaminophen (Acetaminophen) 500 Mg Tablet, 1,000 MG PO Q6HR Prescribed by: FORTUNATO DELCID on 08/30/18821 Cephalexin (Keflex) 500 Mg Capsule, 500 MG PO Q6H Prescribed by: FORTUNATO DELCID on 07/28/18 06 Docusate Sodium (Docusate Sodium) 100 Mg Capsule, 100 MG PO BID Prescribed by: FORTUNATO DELCID on 08/30/18821 Ibuprofen (Ibuprofen) 800 Mg Tablet, 800 MG PO Q8HR Prescribed by: FORTUNATO DELCID on 08/30/18821 Oxycodone Hcl (Oxycodone IR) 5 Mg Tab, 5 MG PO Q6H PRN for PAIN-SEVERE Prescribed by: FORTUNATO DELCID on 08/30/18821 OB - History Hx of Present Care: Yes Ultrasounds: Normal mid trimester US Obstetrical Complications: None Medical Complications: None Information Induced Hypertension: No Maternal Gestational Diabetes: No Hemorrhage: No Obstetrical History Hx : 3 Hx Para: 2 Hx # Term Pregnancies: 2 Hx Multiple Gestation: No Hx Ectopic : No Hx Stillbirth: No Hx Complication: No Hx Induced Hypertens: No Hx Maternal Gestational Diabet: No Hx Hemorrhage: No Delivery History Hx Dystocia: No Hx Forceps Assisted Delivery: No Hx Vacuum Extraction Assisted: No Hx Placenta Abnormality: No Hx Distress: No Hx Large For Gestational Age I: No Hx Small for Gestational Age I: No Hx Section: No Hx Vaginal Delivery Post C-Sec: No Hx Blood Disorders: No Adverse Rxn to Tranfusion: No Patient Past Medical History s/pT&A hx kidney stones tube in ears as a child Social History/Family History Recreational Drug Use: No 2nd Hand Smoke Exposure: Yes Immunizations Influenza Vaccine Up-to-Date: No; Not Current Tetanus Booster (TDap): Less than 5yrs (01/23/2021) Rubella: immune RPR/VDRL: Negative GBS Status: Negative HBsAG: Negative OB - Admission Exam Physical Exam Vitals: Vital Signs 03/07/21 07:50 Temp 36.8 Pulse 61 Resp 18 Pulse Ox 97 O2 Delivery Room Air Abdomen: Gravid Cervical Dilatation: 5cm (4 cm on admission) Effacement: 75% Station: 0 Membranes: Ruptured (AROM w/ FSE placed) Amniotic Fluid: Thin Meconium Heart Rate: 140's Accelerations: Accelerations Present Decelerations: Late Decelarations (2 late decels noted shortly after presentation; resolved w/ no further late decels at this time.) Short Term Variability: Present Web Manager Variability: Average (6-25) Contractions on Admission: 6-10 Minutes Apart Intensity: Moderate Labs Laboratory Tests Test 03/07/21 07:30 03/07/21 08:54 Range/Units Urine Color YELLOW Urine Clarity CLEAR Urine pH 6.5 5-9 Urine Specific [place] 1.025 H 1.016-1.022 Urine Protein TRACE H NEGATIVE Urine Glucose (UA) NEGATIVE NEGATIVE Urine Ketones NEGATIVE NEGATIVE Urine Nitrite NEGATIVE NEGATIVE Urine Bilirubin NEGATIVE NEGATIVE Urine Urobilinogen 1.0 < = 1.0 MG/DL Urine Leukocyte Esterase 1+ H NEGATIVE Urine RBC (Auto) NEGATIVE NEGATIVE Urine RBC 2-5 H /HPF Urine WBC 10-25 H /HPF Urine Squamous Epithelial Cells 10-25 H /HPF Urine Crystals PRESENT H /LPF Urine Calcium Oxalate Crystals FEW H /LPF Urine Amorphous Sediment FEW KHADIJAH URATES H /LPF Urine Bacteria LARGE H /HPF Urine Casts NONE /LPF Urine Mucus MODERATE H /LPF Urine Culture Indicated CULTURE PENDING White Blood Count 8.4 4.3-11.0 10^3/uL Red Blood Count 4.02 3.80-5.11 10^6/uL Hemoglobin 13.0 11.5-16.0 g/dL Hematocrit 38 35-52 % Mean Corpuscular Volume 94 80-99 fL Mean Corpuscular Hemoglobin 32 25-34 pg Mean Corpuscular Hemoglobin Concent 34 32-36 g/dL Red Cell Distribution Width 12.3 10.0-14.5 % Platelet Count 187 130-400 10^3/uL Mean Platelet Volume 10.8 9.0-12.2 fL Immature Granulocyte % (Auto) 1 % Neutrophils (%) (Auto) 77 H 42-75 % Lymphocytes (%) (Auto) 14 12-44 % Monocytes (%) (Auto) 8 0-12 % Eosinophils (%) (Auto) 0 0-10 % Basophils (%) (Auto) 0 0-10 % Neutrophils # (Auto) 6.5 1.8-7.8 10^3/uL Lymphocytes # (Auto) 1.2 1.0-4.0 10^3/uL Monocytes # (Auto) 0.7 0.0-1.0 10^3/uL Eosinophils # (Auto) 0.0 0.0-0.3 10^3/uL Basophils # (Auto) 0.0 0.0-0.1 10^3/uL Immature Granulocyte # (Auto) 0.0 0.0-0.1 10^3/uL OB - Assessment/Plan/Diagnosis Assessment Assessment: active labor Admission Dx @39w1d Spontaneous onset of labor meconium fluid Admission Status: Inpatient Order (span 2 midnights) Reason for Inpatient Admission: labor and delivery Plan Plan: Expectant Management Induction Method: AROM Other Plan augment labor if needed UMESH MARTINEZ DO Mar 07, 2021 11:21
[2021-03-07] MEDS ORDERED: OXYTOCIN PRE-MIX DRIP 500 ML IV ONE (11:57)
[2021-03-07] MEDS ORDERED: fentaNYL 2 mcg/ml BUPIVA 0.125 100 ML ONE (11:57)
[2021-03-07] MEDS ORDERED: BUPIVACAINE 0.25% 30 ML (SENSORCAINE) VIAL ONE (12:03)
[2021-03-07] MEDS ORDERED: fentaNYL INJ 100 MCG/2 ML AMP ONE (12:03)
[2021-03-07] MEDS ORDERED: diphenhydrAMINE 50 MG/ML INJ (BENADRYL) IV PRN (13:15)
[2021-03-07] MEDS ORDERED: EPIDURAL (fentaNYL 2 MCG/ML BUPIVA 0.125%)100 ML BAG EPI PRN (13:15)
[2021-03-07] MEDS ORDERED: LACTATED RINGERS 1,000 ML IV SCH (13:15)
[2021-03-07] MEDS ORDERED: NALOXONE 0.4 MG/ML 1 ML (NARCAN) VIAL IV PRN (13:15)
[2021-03-07] MEDS ORDERED: ONDANSETRON 4 MG/2 ML (SDV) Z0FRAN IV PRN (13:15)
[2021-03-07] MEDS ORDERED: CATHETER FLUSH 10 ML SYR IV SCH (14:00)
--- NOTE | 2021-03-07 16:38 | OB Labor & Delivery Record ---
Vag Delivery Note Vag Delivery Note Date of Delivery: 03/07/21 Preoperative Diagnosis: Chely Nielsen is a (25 /Para 3 / 2,Gestational Age (wks)39 here in active labor Postoperative Diagnosis: Same Surgeon: LOTUS GO MD Homebound Teacher: None Anesthesia: Epidural Delivery Type: @ 1608 Findings: Viable female , apgars 8/9, weight 7#2, 3237 grams Lacerations: 2nd degree perineal Meconium stained fluid Intact placenta with 3 vessel cord. No nuchal cord, body cord or shoulder dystocia Estimated Blood Loss: 100 ml Complications: None Condition: Stable Description of Procedure: The patient is a 25 year old female who presented in active labor. She was admitted and informed consent was obtained. Her labor course was remarkable for meconium stained fluid at AROM. She progressed to complete dilatation and began to push. She was then set up for delivery. The 's head was delivered atraumatically in the LAURYN position. The shoulders and remainder of the 's body were then delivered without difficulty. Upon delivery, the head was held below the level of the perineum and the mouth and nares were bulb suctioned. The cord was doubly clamped and cut by mother after 2 min delay and the infant was attended to by the pediatric staff on maternal abdomen. An intact placenta with 3-vessel cord delivered via [place] and there was found to be minimal bleeding.~ Vigorous fundal massage was performed and the fundus was found to be firm. IV oxytocin was given. Examination of the vagina and perineum revealed a 2nd degree perineal laceration repaired in the usual fashion with 3-0 vicryl suture. Following the repair, sponge, instrument and needle counts were correct. Mom and baby were both in stable condition in the labor suite. Vitals - Labs Vital Signs - I&O Vital Signs Date Time Temp Pulse Resp B/P (MAP) Pulse Ox O2 Delivery O2 Flow Rate FiO2 03/07/21 09:00 76 18 114/73 (87) Room Air 03/07/21 07:50 36.8 61 18 97 Room Air 03/07/21 07:25 36.8 61 18 126/62 (83) 97 Room Air Labs Laboratory Tests 03/07/21 07:30: Urine Color YELLOW, Urine Clarity CLEAR, Urine pH 6.5, Urine Specific [place] 1.025H, Urine Protein TRACEH, Urine Glucose (UA) NEGATIVE, Urine Ketones NEGATIVE, Urine Nitrite NEGATIVE, Urine Bilirubin NEGATIVE, Urine Urobilinogen 1.0, Urine Leukocyte Esterase 1+H, Urine RBC (Auto) NEGATIVE, Urine RBC 2-5H, Urine WBC 10-25H, Urine Squamous Epithelial Cells 10-25H, Urine Crystals PRESENTH, Urine Calcium Oxalate Crystals FEWH, Urine Amorphous Sediment FEW KHADIJAH URATESH, Urine Bacteria LARGEH, Urine Casts NONE, Urine Mucus MODERATEH, Urine Culture Indicated CULTURE PENDING 03/07/21 08:54: White Blood Count 8.4, Red Blood Count 4.02, Hemoglobin 13.0, Hematocrit 38, Mean Corpuscular Volume 94, Mean Corpuscular Hemoglobin 32, Mean Corpuscular Hemoglobin Concent 34, Red Cell Distribution Width 12.3, Platelet Count 187, Mean Platelet Volume 10.8, Immature Granulocyte % (Auto) 1, Neutrophils (%) (Auto) 77H, Lymphocytes (%) (Auto) 14, Monocytes (%) (Auto) 8, Eosinophils (%) (Auto) 0, Basophils (%) (Auto) 0, Neutrophils # (Auto) 6.5, Lymphocytes # (Auto) 1.2, Monocytes # (Auto) 0.7, Eosinophils # (Auto) 0.0, Basophils # (Auto) 0.0, Immature Granulocyte # (Auto) 0.0 LOTUS GO MD Mar 07, 2021 16:37
[2021-03-07] MEDS ORDERED: MEASLES,MUMPS,RUBELLA 1 EA INJ SQ ONE (16:45)
[2021-03-07] MEDS ORDERED: WITCH HAZEL(TUCKS) 40 EA JAR TOP PRN (16:45)
[2021-03-07] MEDS ORDERED: OXYTOCIN PRE-MIX DRIP 500 ML IV SCH (16:45)
[2021-03-07] MEDS ORDERED: TETANUS,DIPTH,PERTUSS P/F (BOOSTRIX) 0.5 ML VIAL IM ONE (16:45)
[2021-03-07] MEDS ORDERED: BENZOCAINE/MENTHOL (DERMOPLAST) 56 ML CAN TP PRN (16:45)
[2021-03-07] MEDS: IBUPROFEN 600 MG (MOTRIN) TAB PO SCH (18:17)
[2021-03-07] MEDS: ACETAMINOPHEN 500 MG TAB (TYLENOL) PO SCH (18:18)
[2021-03-08 00:27] VITALS: BP 89/53
[2021-03-08] MEDS: IBUPROFEN 600 MG (MOTRIN) TAB PO SCH ×4 (00:29→18:21)
[2021-03-08] MEDS: ACETAMINOPHEN 500 MG TAB (TYLENOL) PO SCH ×4 (00:29→18:21)
[2021-03-08] MEDS: DOCUSATE SODIUM 100 MG (COLACE) CAP PO SCH ×2 (00:30→08:16)
[2021-03-08 04:20] VITALS: BP 104/60
[2021-03-08 07:14] LABS: BASOPHILS % (AUTO) 0 % (0-10); EOSINOPHILS % (AUTO) 0 % (0-10); HEMATOCRIT 37 % (35-52); HEMOGLOBIN 12.5 g/dL (11.5-16.0); LYMPHOCYTES # (AUTO) 1.8 10^3/uL (1.0-4.0); LYMPHOCYTES % (AUTO) 19 % (12-44); MEAN CORPUSCULAR HEMOGLOBIN 32 pg (25-34); MEAN CORPUSCULAR HGB CONC 34 g/dL (32-36); MEAN CORPUSCULAR VOLUME 94 fL (80-99); MEAN PLATELET VOLUME 10.9 fL (9.0-12.2); MONOCYTES # (AUTO) 0.7 10^3/uL (0.0-1.0); MONOCYTES % (AUTO) 7 % (0-12); NEUTROPHILS # (AUTO) 6.9 10^3/uL (1.8-7.8); NEUTROPHILS % (AUTO) 74 % (42-75); PLATELET COUNT 151 10^3/uL (130-400); WHITE BLOOD COUNT 9.4 10^3/uL (4.3-11.0)
[2021-03-08] MEDS ORDERED: IBUP-844 PO (08:10)
--- NOTE | 2021-03-08 08:13 | Short Stay Summary ---
Discharge Summary Hospital Course Final Diagnosis: see Hospital Course Hospital Course Date of Admission: Mar 07, 2021 at 08:25 Admission Diagnosis : 1. at 39w1d with spontaneous onset of labor Family Physician/Provider: Agustina Date of Discharge: 03/08/21 Discharge Diagnosis: 1. s/p on 03/07/21 at 39wk 2. second degree laceration repair Hospital Course: Routine care. Labs and Pending Lab Test: Laboratory Tests 03/07/21 08:54: White Blood Count 8.4, Red Blood Count 4.02, Hemoglobin 13.0, Hematocrit 38, Mean Corpuscular Volume 94, Mean Corpuscular Hemoglobin 32, Mean Corpuscular Hemoglobin Concent 34, Red Cell Distribution Width 12.3, Platelet Count 187, Mean Platelet Volume 10.8, Immature Granulocyte % (Auto) 1, Neutrophils (%) (Auto) 77H, Lymphocytes (%) (Auto) 14, Monocytes (%) (Auto) 8, Eosinophils (%) (Auto) 0, Basophils (%) (Auto) 0, Neutrophils # (Auto) 6.5, Lymphocytes # (Auto) 1.2, Monocytes # (Auto) 0.7, Eosinophils # (Auto) 0.0, Basophils # (Auto) 0.0, Immature Granulocyte # (Auto) 0.0 03/08/21 06:57: White Blood Count 9.4, Red Blood Count 3.90, Hemoglobin 12.5, Hematocrit 37, Mean Corpuscular Volume 94, Mean Corpuscular Hemoglobin 32, Mean Corpuscular Hemoglobin Concent 34, Red Cell Distribution Width 12.5, Platelet Count 151, Mean Platelet Volume 10.9, Immature Granulocyte % (Auto) 0, Neutrophils (%) (Auto) 74, Lymphocytes (%) (Auto) 19, Monocytes (%) (Auto) 7, Eosinophils (%) (Auto) 0, Basophils (%) (Auto) 0, Neutrophils # (Auto) 6.9, Lymphocytes # (Auto) 1.8, Monocytes # (Auto) 0.7, Eosinophils # (Auto) 0.0, Basophils # (Auto) 0.0, Immature Granulocyte # (Auto) 0.0 Assessment/Pt Instructions Follow-up with Dr. Berrios in 6 weeks Discharge Instructions Discharge Diet: No Restrictions Discharge Physical Examination General Appearance: Alert, Oriented X3, Cooperative Psych/Mental Status: Mood NL Allergies: Coded Allergies: tomato (Verified Allergy, Unknown, 10/17/18) Discharge Summary Date of Admission Mar 07, 2021 at 08:25 Date of Discharge UMESH MARTINEZ DO Mar 08, 2021 08:13
[2021-03-08 08:17] VITALS: BP 101/77
--- NOTE | 2021-03-08 10:15 | Anesthesia-Regional Post-Op ---
Regional Patient Condition Mental Status: Alert, Oriented x3 Circulation: Same as Pre-Op Headache: Absent Sensation: Full Recovery Motor Block: Absent Post Op Complications Complications None Follow Up Care/Instructions Patient Instructions None needed. Anesthesia/Patient Condition Patient is doing well, no complaints, stable vital signs, no apparent adverse anesthesia problems. No complications reported per nursing. MOSES CABRERA CRNA Mar 08, 2021 10:15
[2021-03-08 12:25] VITALS: BP 103/58
[2021-03-08] MEDS: CATHETER FLUSH 10 ML SYR IV SCH ×2 (13:13→13:14)
[2021-03-08 15:36] VITALS: BP 98/55
== END 2021-03-08 19:30 | disposition home or self-care (01) | DRG 807 ==
LOC: WSo 07:01 → LDRP 07:05 → WSo 08:25 → LDRP 08:25 → OBSVTOIN 08:25 → LDRP 20:26
PROVIDERS: ADMIT Family Medicine; ATTEND Family Medicine
PROC: 10E0XZZ Delivery of Products of Conception, External Approach (ICD-10-PCS; principal; 2021-03-07)
PROC: 0KQM0ZZ Repair Perineum Muscle, Open Approach (ICD-10-PCS; 2021-03-07)
DX: O77.0 Labor and delivery complicated by meconium in amniotic fluid (principal); Z37.0 Single live birth; Z3A.39 39 weeks gestation of pregnancy; O70.1 Second degree perineal laceration during delivery
CPT/HCPCS: 36415; 81000; 85025; 86850; 86900; 86901; 87088; 99212